=== PATIENT | female | born 1980 | race Caucasian/White ===

== ENCOUNTER 2018-07-11 21:16 | Emergency (ER) | payer OTHER ==
[2018-07-11 21:21] VITALS: BP 135/94
--- NOTE | 2018-07-11 21:41 | EDPHY ---
H & P Stated Complaint: Van Vleck in R eye, burning sensation, "dixie feeling" Time Seen by Provider: 07/11/18 21:40 - Personal History LMP (Females 10-55): 15-21 Days Ago Current Tetanus Diphtheria and Acellular Pertussis (TDAP): Yes - Medical/Surgical History Hx Asthma: No Hx Chronic Respiratory Disease: No Hx Diabetes: No Hx Cardiac Disease: No Hx Renal Disease: No Hx Cirrhosis: No Hx Alcoholism: No Hx HIV/AIDS: No Hx Splenectomy or Spleen Trauma: No - Social History Smoking Status: Never smoked Constitutional: Initial Vital Signs Temperature (C) 36.8 C 07/11/18 21:18 Heart Rate 84 07/11/18 21:18 Respiratory Rate 17 07/11/18 21:18 Blood Pressure 135/94 H 07/11/18 21:18 O2 Sat (%) 99 07/11/18 21:18 O2 Delivery Mode Room Air Allergies/Adverse Reactions: No Known Allergies Allergy (Unverified 07/11/18 21:19) Home Medications: Medication Instructions Recorded Seroquel 07/11/18 Tegretol 07/11/18 Medical Decision Making ED Course/Re-evaluation: CHIEF COMPLAINT: Van Vleck in right eye HISTORY OF PRESENT ILLNESS: The patient is a 38 y/o female complaining of having paint in her right eye. The patient was painting her ceiling with water soluble paint when a drop of paint went into her right eye. She washed eye for 15 minutes but still felt like the eye was irritated. She decided to present to an urgent care for her right eye pain, and had no significant findings. However, they were concerned that the patient might have something in her eye, so they sent her to the emergency department. She denies any vision changes. No fever, headache, body aches, lightheadedness, chest pain, heart palpitations, shortness of breath, cough, abdominal pain, urinary or bowel complaints, numbness, paresthesias. REVIEW OF SYSTEMS: A comprehensive 10 system review of systems is otherwise negative aside from elements mentioned in the history of present illness and medical decision making. PHYSICAL EXAM: HR, BP, O2 Sat, RR. Temp noted General Appearance: Alert, well hydrated, appropriate, and non-toxic appearing. Visual Acuity: Noted from Nurse's notes. Pupils: PERRLA, EOMI, no nystagmus, no trauma, no injection. Lids: No edema or swelling Skin: No proptosis, no periorbital erythema or swelling, no vesicles Conjunctivae: Right conjunctival hemorrhage and abrasion at about 6:00. Not injected, not icteric, no discharge Anterior chamber: Normal, no hyphema or hypopyon Posterior Chamber: No papilledema or hemorrhages. Past medical history: Denies Past surgical history: Denies Family history: Denies Social history: Lives in [place], , employed DIAGNOSTICS/PROCEDURES/CRITICAL CARE TIME: Not indicated. DIFFERENTIAL DIAGNOSIS: The differential diagnosis for the patient's eye injury included but was not limited to foreign body, conjunctival abrasion, conjunctivitis, retinal tear. MEDICAL DECISION MAKING: The patient is a 38 y/o female complaining of having paint get in her right eye while painting her ceiling with water-soluble paint. Patient's slit lamp exam reveals right conjunctival hemorrhage and abrasion at about 6:00. I have advised the patient to follow up with her bus boy. Return precautions provided; patient is comfortable with this plan. Departure - Departure Disposition: Home, Routine, Self-Care Clinical Impression: Chemical injury of eye Qualifiers: Encounter type: initial encounter Laterality: right Qualified Code(s): T26.91XA - Corrosion of right eye and adnexa, part unspecified, initial encounter Condition: Good Instructions: Chemical Eye Goncalves (ED), Eye Foreign Body (ED) Additional Instructions: 1. Follow up with your bus boy within 72 hours. 2. Return to the Emergency Department for severe headache, vomiting, vision changes, confusion, fever or other concerns. Referrals: Marah Cordoba MD [Primary Care Provider] - As per Instructions ANDREW CELESTE [Retired Resigned] - As per Instructions ([email or web address] [address] [place] [address] ) Report Scribed for: Aris Jones Report Scribed by: Sue Man Date of Report: 07/11/18 Time of Report: 21:41
== END 2018-07-11 22:16 | disposition home or self-care (01) ==
DX: S05.01XA Injury of conjunctiva and corneal abrasion without foreign body, right eye, initial encounter (principal); Y93.E9 Activity, other interior property and clothing maintenance; Y92.009 Unspecified place in unspecified non-institutional (private) residence as the place of occurrence of the external cause